=== PATIENT | female | born 1965 | race Asian ===

== ENCOUNTER 2022-06-10 04:16 | Emergency (ER) | payer OTHER, SELFPAY ==
[2022-06-10 04:20] VITALS: BP 154/76; PULSE 71; RESP 18; TEMP 36.2; O2SAT 100
[2022-06-10] MEDS: FLUORESCEIN SOD 1 MG/STRIP (04:55)
[2022-06-10] MEDS: TETRACAINE HCL 0.5% OPHTH SOLN 4 ML BTL 1 DROP (04:55)
--- NOTE | 2022-06-10 05:25 | ED.EYEPROB ---
HPI - Eye Problem General Chief complaint: Eye Problems Stated complaint: left eye blurry Time Seen by Provider: 06/10/22 04:24 Source: patient and RN notes reviewed Mode of arrival: ambulatory Limitations: no limitations History of Present Illness HPI Narrative: This is a 56 year old female who presents for evaluation of left eye blurred vision. She states she woke up with left eye watering and left eye pain. She also noticed that her left eye is blurry. She states she became extremely panicked and she developed tingling to bilateral hands. Her tingling has resolved. She denies headache, limb weakness, nausea, vomiting. She reports she had bilateral lens replacements performed 1 year ago. She states now her eye feels irritated. She denies seeing flashes of light. She denies visual field defects. She denies dizziness or speech issues. Related Data Home Medications Medication Instructions Recorded Confirmed brompheniramine maleate 4 mg 4 mg PO DAILY PRN Allergy Symptoms 04/22/21 01/07/22 capsule fluticasone propionate 50 2 spray intranasal DAILY PRN 04/22/21 01/07/22 mcg/actuation nasal Allergy Symptoms spray,suspension (Children's Flonase Allergy Relief) ibuprofen 100 mg tablet 200 mg PO Q6H PRN Pain 01/07/22 01/07/22 Allergies Allergy/AdvReac Type Severity Reaction Status Date / Time dextromethorphan Allergy Unknown Unknown Verified 01/07/22 14:10 Review of Systems Review of Systems: All systems reviewed & are unremarkable except as noted in HPI and below Constitutional: Constitutional: Denies fatigue and Denies fever(s) Eyes: Eyes: Reports blurry vision and Denies photophobia ENT: Denies nasal congestion and Denies sinus pressure Cardiovascular: Cardiovascular: Denies chest pain, Denies rapid heart rate, Denies leg edema and Denies dyspnea Respiratory: Respiratory: Denies hemoptysis and Denies dyspnea Gastrointestinal: Gastrointestinal: Denies abdominal pain and Denies melena Musculoskeletal: Musculoskeletal: Denies numbness Neurologic: Denies Abnormal speech present, Denies focal weakness and Denies numbness Endocrine: Endocrine: Denies fatigue PMFSH Past Medical History Medical History Ganglion cyst (normal spontaneous vaginal delivery) Pure hypercholesterolemia, unspecified Seizure Subclinical hypothyroidism Surgical History Surgical History History of breast biopsy History of hysterectomy History of thyroidectomy Family History Family History Father Family history of hypercholesterolemia Hypertension Family history of benign prostatic hyperplasia Mother Family history of hypercholesterolemia Grandparent Cerebrovascular accident Carcinoma of colon Family history of throat cancer Social History Social History Smoking status: Never smoker Alcohol intake: never Substance use type: does not use Spiritual care concerns: No Exam Const: General: healthy appearing, no acute distress and alert Nutritional Appearance: well nourished Orientation/consciousness: patient oriented x3 Limitations: no limitations HENMT: Head: normal to inspection Ears: external ears normal Face and sinus: normal facial exam Mouth: Yes Normal oral and palatal mucosa present Throat: posterior oropharynx normal Eyes: Conjunctivae: conjunctivae normal Cornea: corneas abnormal on the left fluorescein used and abrasion and fluorescein used Pupils: Equal, round and reactive pupils present EOM: EOMs intact bilaterally Direct Ophthalmoscopy: no photophobia and no papilledema Resp: Effort & Inspection: normal respiratory effort Auscultation: clear to auscultation bilaterally Cardio: Rate: regular rate Rhythm: regular rhythm Heart sounds: no murmurs Skin:
== END 2022-06-10 05:50 | disposition home or self-care (01) ==
PROVIDERS: Emergency Provider General Practice; PCP Family Medicine Sports Medicine
DX: H53.8 Other visual disturbances (principal); S05.02XA Injury of conjunctiva and corneal abrasion without foreign body, left eye, initial encounter; E78.00 Pure hypercholesterolemia, unspecified; E03.8 Other specified hypothyroidism; Z90.710 Acquired absence of both cervix and uterus; X58.XXXA Exposure to other specified factors, initial encounter
CPT/HCPCS: 99283

== ENCOUNTER 2024-05-28 21:04 | Emergency (ER) | payer OTHER, SELFPAY ==
[2024-05-28 21:07] VITALS: BP 154/71; PULSE 74; RESP 15; TEMP 36.5; O2SAT 99
[2024-05-28] MEDS: diphenhydrAMINE HCl INJ 50 MG/ML VIAL 25 MG IV PUSH (23:11)
[2024-05-28] MEDS: SODIUM CHLORIDE 0.9% IV 1,000 ML 999 ML IV CONT (23:13)
[2024-05-28] MEDS: PROCHLORPERAZINE EDISYLATE 10 MG/2 ML VIAL IV PUSH (23:13)
[2024-05-28 23:17] LABS: Basophils Percent Auto 0.3 % (0.2-1.2); Eosinophils Percent Auto 0.1 % (0-4.4); Hematocrit 40.4 % (37.0-47.0); Immature Granulocyte Absolute 0.03 K/mm3 (0.00-0.031); Immature Granulocyte Percent A 0.3 % (0-0.5); Lymphocytes Absolute Auto 1.77 K/mm3 (0.9-3.2); Lymphocytes Percent Auto 16.7 % (18.3-44.2); Mean Corpuscular HGB Conc 34.7 g/dl (32-36); Mean Corpuscular Volume 92.4 fl (80-100); Mean Platelet Volume 10.2 fl (7.4-10.4); Monocytes Absolute Auto 0.6 K/mm3 (0.1-0.6); Monocytes Percent Auto 5.6 % (2.6-8.5); Neutrophils Absolute Auto 8.2 K/mm3 (1.3-6.7); Platelet Count Result 286 k/mm3 (150-375); Red Blood Count 4.37 M/mm3 (4.2-5.4); Red Cell Distribution Width 12.8 % (11.5-14.5); White Blood Count 10.6 K/mm3 (4.5-10.0)
[2024-05-28 23:40] LABS: Lactic Acid Reflex 1.9 mmol/L (0.7-2.0)
[2024-05-29] LABS: Alanine Aminotransferase 22 U/L (6-35); Albumin Level 4.5 g/dL (3.5-5.1); Alkaline Phosphatase 97 U/L (38-126); Anion Gap 5 mmol/L (4-12); Aspartate Amino Transferase 38 U/L (14-36); Blood Urea Nitrogen 22 mg/dL (7-17); Calcium 9.5 mg/dL (8.4-10.2); Carbon Dioxide 29 mmol/L (22-30); Chloride 105 mmol/L (98-107); Estimated CRCL calculation 59 ml/min; Estimated Glomerular Filt Rate > 60; Glucose 111 mg/dL (65-110); Lipase 138 U/L (23-300); Magnesium 2.5 mg/dL (1.6-2.3); Potassium 4.1 mmol/L (3.4-5.0); Sodium 139 mmol/L (137-145)
--- NOTE | 2024-05-29 01:01 | ED_ITS ---
HPI - General Adult General Chief complaint: Nausea/Vomiting/Diarrhea Stated complaint: eye surgery complications Time Seen by Provider: 05/28/24 22:49 History of Present Illness HPI narrative: Patient 58-year-old female who presents emergency department with chief complaint of nausea vomiting. Patient had a ophthalmological procedure done at [facility] and since the surgery has been having nausea and vomiting. Patient reports she has had issues before with anesthesia related nausea vomiting patient got a prescription for Zofran today and has had no relief. 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 earlier today Related Data Home Medications ?Medication ?Instructions ?Recorded ?Confirmed ?Last Taken ?Type brompheniramine maleate 4 mg 4 mg PO DAILY PRN Allergy Symptoms 04/22/21 01/07/22 Unknown History capsule fluticasone propionate 50 2 spray intranasal DAILY PRN 04/22/21 01/07/22 Unknown History mcg/actuation nasal Allergy Symptoms spray,suspension (Children's Flonase Allergy Relief) ibuprofen 100 mg tablet 200 mg PO Q6H PRN Pain 01/07/22 01/07/22 Unknown History Allergies Allergy/AdvReac Type Severity Reaction Status Date / Time dextromethorphan Allergy Unknown Unknown Verified 05/28/24 21:11 KEVIN Inhibitors Allergy Unknown Verified 05/28/24 21:11 ethyl alcohol AdvReac Hives Verified 05/28/24 21:11 Review of Systems 2 Review of Systems: A 10 system review of systems was completed on the patient and is negative except for what is stated in the HPI. Nursing and ancillary documentation was reviewed. [facility] Past Medical History Medical History Seizure Subclinical hypothyroidism Pure hypercholesterolemia, unspecified (normal spontaneous vaginal delivery) Ganglion cyst Surgical History Surgical History History of thyroidectomy History of breast biopsy History of hysterectomy Family History Family History Father Family history of hypercholesterolemia Hypertension Family history of benign prostatic hyperplasia Mother Family history of hypercholesterolemia Grandparent Cerebrovascular accident Carcinoma of colon Family history of throat cancer Social History Social History Smoking status: Never smoker Alcohol intake: never Substance use type: does not use Living arrangements: with family Spiritual care concerns: No Exam 2 Narrative: GENERAL: Well-appearing, well-nourished, and in no acute distress. HEAD: Normocephalic, atraumatic. EYES: PERRLA and EOMI. Shield present on the right eye ENT: Nares clear, no rhinorrhea or epistaxis. Mucous membranes moist. NECK: Supple. CHEST: Clear to auscultation. No respiratory distress. HEART: Regular rate and rhythm. No murmur heard. Normal peripheral pulses. ABDOMEN: Soft, nontender, nondistended, normal active bowel sounds. EXTREMITIES: Normal range of motion. No edema. SKIN: Warm, dry, no rash. NEURO: No focal deficits. Alert and oriented x3. PSYCH: Normal mood and affect. Course Vital Signs Vital signs: Vital Signs Temperature 36.5 C 05/28/24 21:07 Pulse Rate 74 05/28/24 21:07 Respiratory Rate 15 05/28/24 21:07 Blood Pressure 154/71 H 05/28/24 21:07 Pulse Oximetry 99 05/28/24 21:07 Oxygen Delivery Room Air 05/28/24 21:07 Temperature 36.5 C 05/28/24 21:07 Pulse Rate 74 05/28/24 21:07 Respiratory Rate 15 05/28/24 21:07 Blood Pressure 154/71 H 05/28/24 21:07 Pulse Oximetry 99 05/28/24 21:07 Oxygen Delivery Room Air 05/28/24 21:07 Medical Decision Making [facility] Narrative Medical decision making narrative: Differential diagnosis includes dehydration, nausea vomiting electrolyte abnormality Laboratory studies were obtained on the patient showed CBC with white count of 10.6 hemoglobin was 14.0 electrolytes showed no significant abnormalities Patient received normal saline boluses in the emergency department received IV antiemetics. Vital Signs Vital Signs: Vital Signs Temperature 36.5 C 05/28/24 21:07 Pulse Rate 74 05/28/24 21:07 Respiratory Rate 15 05/28/24 21:07 Blood Pressure 154/71 H 05/28/24 21:07 Pulse Oximetry 99 05/28/24 21:07 Oxygen Delivery Room Air 05/28/24 21:07 Temperature 36.5 C 05/28/24 21:07 Pulse Rate 74 05/28/24 21:07 Respiratory Rate 15 05/28/24 21:07 Blood Pressure 154/71 H 05/28/24 21:07 Pulse Oximetry 99 05/28/24 21:07 Oxygen Delivery Room Air 05/28/24 21:07 Lab Data 05/28/24 23:11 05/28/24 23:11 Labs: Lab Results 05/28/24 05/28/24 Range/Units 23:09 23:11 WBC 10.6 H (4.5-10.0) K/mm3 RBC 4.37 (4.2-5.4) M/mm3 Hgb 14.0 (12.0-15.0) g/dL Hct 40.4 (37.0-47.0) % MCV 92.4 (80-100) fl MCH 32.0 (26-34) pg MCHC 34.7 (32-36) g/dl RDW 12.8 (11.5-14.5) % Plt Count 286 (150-375) k/mm3 MPV 10.2 (7.4-10.4) fl Immature Gran % (Auto) 0.3 (0-0.5) % Neut % (Auto) 77.0 H (45.5-73.1) % Lymph % (Auto) 16.7 L (18.3-44.2) % Walker % (Auto) 5.6 (2.6-8.5) % Eos % (Auto) 0.1 (0-4.4) % Baso % (Auto) 0.3 (0.2-1.2) % Lymph # (Auto) 1.77 (0.9-3.2) K/mm3 Walker # (Auto) 0.6 (0.1-0.6) K/mm3 Eos # (Auto) 0.0 (0-0.3) K/mm3 Baso # (Auto) 0.0 (0.0-0.1) K/mm3 Abs Immat Gran (auto) 0.03 (0.00-0.031) K/mm3 Absolute Neuts (auto) 8.2 H (1.3-6.7) K/mm3 Absolute Nucleated RBC 0.000 (0.0-0.012) K/mm3 Nucleated RBC % 0.0 (0.0-0.2) % Sodium 139 (137-145) mmol/L Potassium 4.1 (3.4-5.0) mmol/L Chloride 105 (98-107) mmol/L Carbon Dioxide 29 (22-30) mmol/L Anion Gap 5 (4-12) mmol/L BUN 22 H (7-17) mg/dL Creatinine 0.80 (0.7-1.0) mg/dL Estim Creat Clear Calc 59 ml/min Estimated GFR > 60 (59 - ) Glucose 111 H (65-110) mg/dL Lactic Acid 1.9 (0.7-2.0) mmol/L Calcium 9.5 (8.4-10.2) mg/dL Magnesium 2.5 H (1.6-2.3) mg/dL Total Bilirubin 1.0 (0.2-1.3) mg/dL AST 38 H (14-36) U/L ALT 22 (6-35) U/L Alkaline Phosphatase 97 (38-126) U/L Total Protein 8.0 (6.3-8.2) g/dL Albumin 4.5 (3.5-5.1) g/dL Lipase 138 (23-300) U/L Discharge Plan Discharge Clinical Impression: Nausea and vomiting Patient Disposition: Home, Self-Care Condition: Stable Instructions: Antibiotic Form, Acute Nausea and Vomiting (ED) Patient Language: Croatian Prescriptions: New promethazine 25 mg suppository 25 mg RECTAL Q6H PRN (Reason: nausea and vomiting) Qty: 12 0RF No Action Advil 100 mg Tablet 200 mg PO Q6H PRN (Reason: Pain) Dimetapp Allergy 4 mg Capsule 4 mg PO DAILY PRN (Reason: Allergy Symptoms) fluticasone propionate [Children's Flonase Allergy Rlf] 50 mcg/actuation spray,suspension 2 spray intranasal DAILY PRN (Reason: Allergy Symptoms) Rx Instructions: administer into each nostril ciprofloxacin HCl 0.3 % drops 2 drp LEFT EYE Q6H 5 Days Qty: 5 0RF Clenpiq 10 mg-3.5 gram -12 gram/160 mL solution 160 ml PO DAILY Qty: 320 0RF Rx Instructions: TAKE DIRECTED simvastatin 5 mg tablet See Rx Instructions .ROUTE .COMPLEX Qty: 90 1RF Dose Instruction: TAKE 1 TABLET DAILY Rx Instructions: TAKE 1 TABLET DAILY Follow-up/Referrals: He,Yvette Mcneil MD [Primary Care Provider] - Time of Disposition: 01:18
[2024-05-29 01:33] VITALS: BP 143/78; PULSE 66; RESP 16; O2SAT 98
== END 2024-05-29 01:35 | disposition home or self-care (01) ==
PROVIDERS: Emergency Provider Emergency Medicine; PCP Family Medicine Sports Medicine
DX: R11.2 Nausea with vomiting, unspecified (principal); E78.00 Pure hypercholesterolemia, unspecified; E89.0 Postprocedural hypothyroidism; Z90.710 Acquired absence of both cervix and uterus; Z79.899 Other long term (current) drug therapy
CPT/HCPCS: 36415; 80053; 83605; 83690; 83735; 85025; 96361; 96374; 96375; 99284; J0780; J1200; J7030